=== PATIENT | male | born 1965 | race Caucasian/White ===

== ENCOUNTER 2022-06-29 08:19 | Outpatient (CLI) | payer OTHER, SELFPAY ==
[2022-06-29 14:01] LABS: Basophils Absolute Auto 0.04 K/uL (0.00-0.30); Basophils Percent Auto 0.6 % (0.0-3.0); Eosinophils Absolute Auto 0.26 K/uL (0.00-0.50); Hematocrit 46.9 % (37.0-53.0); Immature Granulocytes Abs Auto 0.05 K/uL (0.00-0.30); Immature Granulocytes Pct Auto 0.8 %; Lymphocytes Absolute Auto 1.79 K/uL (0.90-2.90); Lymphocytes Percent Auto 27.3 % (20-44); Mean Corpuscular HGB Conc 34 gm/dL (32-36); Mean Corpuscular Hemoglobin 31 pg (26-34); Mean Corpuscular Volume 90 fL (80-100); Monocytes Percent Auto 8.5 % (0.0-11.0); Neutrophils Absolute Auto 3.86 K/uL (1.7-7.0); Neutrophils Percent Auto 58.8 % (42.0-72.0); Platelet Count* 237 K/uL (140-440); RDW Coefficient of Variation % 12.5 % (11.5-15.5); Red Blood Count 5.22 m/uL (4.30-5.90); White Blood Count* 6.56 K/uL (4.50-11.00)
[2022-06-29 14:09] LABS: Slide Review Reflex No
[2022-06-29 14:35] LABS: Chloride* 101 mmol/L (96-114); Potassium* 4.7 mmol/L (3.6-5.1); Sodium* 137 mmol/L (135-149)
[2022-06-29 14:37] LABS: Blood Urea Nitrogen* 22 mg/dL (7-30); Carbon Dioxide* 25 mmol/L (20-32); Cholesterol* 173 mg/dL (90-199); Creatinine* 1.1 mg/dL (0.5-1.5); Estimated Glomerular Filt Rate 79 ml/min
[2022-06-29 14:38] LABS: Calcium* 9.4 mg/dL (8.4-10.6); Glucose* 124 mg/dL (60-115); HDL Cholesterol* 32 mg/dL (>=40); LDL Cholesterol Calculated 97 mg/dL (<100); Triglycerides* 221 mg/dL (40-149)
[2022-06-29 15:05] LABS: PSA Screen* 0.22 ng/mL (0.10-4.00)
[2022-06-29 15:24] LABS: Vitamin B12* 637 pg/mL (243-894)
[2022-06-30 09:07] LABS: Testosterone, Adult Male 329 ng/dL (300-890)
== END 2022-06-29 08:20 | disposition home or self-care (01) ==
PROVIDERS: PCP Family Medicine; Visit Provider Family Medicine
DX: Z00.00 Encounter for general adult medical examination without abnormal findings (principal); I10 Essential (primary) hypertension; R53.83 Other fatigue; E78.5 Hyperlipidemia, unspecified; Z12.5 Encounter for screening for malignant neoplasm of prostate
CPT/HCPCS: 80048; 80061; 82607; 84153; 84403; 84443; 85025

== ENCOUNTER 2023-06-30 10:15 | Outpatient (CLI) | payer OTHER, SELFPAY | END 2023-06-30 10:16 | disposition home or self-care (01) | PROVIDERS: PCP Family Medicine; Visit Provider Family Medicine | DX: Z00.00 Encounter for general adult medical examination without abnormal findings (principal); E78.2 Mixed hyperlipidemia; I10 Essential (primary) hypertension; M10.9 Gout, unspecified; E66.01 Morbid (severe) obesity due to excess calories | CPT/HCPCS: 80048; 80061; 84153; 84550 ==

== ENCOUNTER 2023-12-15 14:55 | Outpatient (CLI) | payer OTHER, SELFPAY ==
--- NOTE | 2023-12-15 15:00 | US_ITS ---
Patient: CARMEN MCWILLIAMS Facility:?[facility] Patient ID:?[id number] Site Patient ID:?[id number]. Site :?[id number] Study:?US-Extremity Bilateral LEV INSF BILATERAL-12/15/2023 4:21:41 PM Ordering Physician:?ALFREDO DANIEL M.D. Final Report: INDICATION: Chronic venous insufficiency COMPARISON: None available TECHNIQUE: A duplex venous ultrasound exam was performed of both lower extremities using johns scale imaging, color Doppler and spectral Doppler analysis. Pre- and post compression images were obtained per site specific protocol. The size of the superficial veins were recorded, along with reflux times if applicable. FINDINGS: In the right lower extremity deep venous system, there is normal compressibility, color Doppler venous blood flow and augmentation within the common femoral vein, superficial femoral vein, popliteal vein, and posterior tibial veins. The greater and lesser saphenous veins of the right lower extremity are also patent and compressible with intact color Doppler venous blood flow. The greater saphenous vein measures 0.8 cm at the saphenofemoral junction where it is competent. The greater saphenous vein is competent throughout the thigh and calf. The lesser saphenous vein is incompetent proximally but competent in the midportion. In the left lower extremity deep venous system, there is normal compressibility, color Doppler venous blood flow and augmentation within the common femoral vein, superficial femoral vein, popliteal vein, and posterior tibial veins. The greater and lesser saphenous veins of the left lower extremity are also patent and compressible with intact color Doppler venous blood flow. The greater saphenous vein measures 0.7 cm at the saphenofemoral junction where it is competent. The greater saphenous vein is incompetent within the distal thigh, proximal calf and distal calf. The lesser saphenous vein is competent. IMPRESSION: 1. No deep or superficial venous thrombosis. 2. Venous insufficiency left greater saphenous vein within the distal thigh, proximal calf and distal calf 3. Venous insufficiency right lesser saphenous vein proximally. Dictated by Alfredo Fung MD @ 12/16/2023 10:04:17 AM Signed by:?Alfredo Fung MD @12/16/2023 10:04:17 AM (Electronic Signature)
== END 2023-12-15 14:56 | disposition home or self-care (01) ==
PROVIDERS: PCP Family Medicine; Visit Provider Family Medicine
DX: I87.2 Venous insufficiency (chronic) (peripheral) (principal)
CPT/HCPCS: 93970

== ENCOUNTER 2024-07-05 09:14 | Outpatient (CLI) | payer OTHER, SELFPAY | END 2024-07-05 09:15 | disposition home or self-care (01) | PROVIDERS: PCP Family Medicine; Visit Provider Family Medicine | DX: Z00.00 Encounter for general adult medical examination without abnormal findings (principal); E78.2 Mixed hyperlipidemia; M10.9 Gout, unspecified; E66.01 Morbid (severe) obesity due to excess calories; R53.83 Other fatigue; I87.2 Venous insufficiency (chronic) (peripheral); Z12.5 Encounter for screening for malignant neoplasm of prostate | CPT/HCPCS: 80048; 82607; 84443; 84550; 85025; G0103 ==

== ENCOUNTER 2025-01-10 08:50 | Outpatient (CLI) | payer OTHER, SELFPAY | END 2025-01-10 08:51 | disposition home or self-care (01) | PROVIDERS: PCP Family Medicine; Visit Provider Family Medicine | DX: E78.2 Mixed hyperlipidemia (principal); I10 Essential (primary) hypertension; R82.90 Unspecified abnormal findings in urine | CPT/HCPCS: 80048; 80061; 85025; 87086 ==

== ENCOUNTER 2025-07-04 09:17 | Outpatient (CLI) | payer OTHER, SELFPAY | END 2025-07-04 09:18 | disposition home or self-care (01) | PROVIDERS: PCP Family Medicine; Visit Provider Family Medicine | DX: I10 Essential (primary) hypertension (principal); E78.2 Mixed hyperlipidemia; Z12.5 Encounter for screening for malignant neoplasm of prostate | CPT/HCPCS: 80048; 80061; G0103 ==